=== PATIENT | female | born 1930 ===

== ENCOUNTER 2020-07-03 11:29 | Inpatient (IN) | payer OTHER ==
[~2020-07-03] VITALS: Ht 157.5 cm; Wt 62.6 kg
--- NOTE | 2020-07-03 11:49 | NUR ---
SE RECIBE PTE ALERTA ACOMPNADA POR FAMILIAR EL CUAL REFIERE QUE LA PTE TIENE HEMORROIDES Y LYN TENIDO SANGRADO RECTAL DESDE JENNIFER.
[2020-07-03] MEDS ORDERED: AMLODIPINE-OLM1 EAC3 (11:51)
[2020-07-03] MEDS ORDERED: LIPITOR20 MG (11:51)
[2020-07-03] MEDS ORDERED: ANASTROZOLE1 MG (11:52)
--- NOTE | 2020-07-03 13:06 | NUR ---
PTE FEMENINA ALERTA Y ORIENTADA EN L[place]AYESH ESFERAS ES EVALUADA POR . ORIENTA PTE SOBRE ORDENES DE [place] REFIERE COMPRENDER. CANALIZA VENA Y COLECTA MUESTRAS DE LABORATORIO, BAJO MEDIDAS ASEPTICAS. ADMINSITRA MEDICAMENTOS, BAJO MEDIDAS ASEPTICAS. SE ENTREGA CONTRASTE ORAL Y SE ORIENTA SOBRE INGESTA REFIERE ENTENDER. SE ENTREGA ENVASE PARA COLECCION DE MUESTRA U/C. SE NOTIFICA A RADIOLOGIA PARA CT.
--- NOTE | 2020-07-03 15:36 | NUR ---
SE RECIBE PTE ALERTA Y ORIENTADA X3 ACOMPANADA DE FAMILIAR. PTE CON H/L COLOCADO Y 0.9NSS 60ML/HR. PTE EN ESPERA DE ESTUDIO DE CT PO PENDIENTE A REALIZAR A LAS 4:45PM. PTE SE CONTINUA MONITORIANDO POR CAMBIOS.
--- NOTE | 2020-07-03 20:36 | NUR ---
SE COLOCA ENEMA A PTE EN HABITACION DE ISOLATION, PTE EVACUA CON MULTIPLES COAGULOS DE SRINATH, SE NOTIFICA A DR. CONNER.
--- NOTE | 2020-07-04 00:31 | NUR ---
SE RECIBE PTE DEL TURNO ANTERIOR, ALERTA, EN COMPANIA DE FAMILIAR, UBICADA EN CAMA NIVEL MAS BAJO, GRIMES DE IDENTIFICACION Y BARANDAS ELEVADAS POR PRECAUCION. SE OBSERVA CON BUEN PATRON RESPIRATORIO Y PIEL TIBIA AL TACTO. IV PATENTE Y LIANA DE EDEMA O ERITEMA CON 0.9% NSS @100ML/HR. PENDIENTE A REALIZAR PRUEBA DE LABORATORIO EN LA MANANA Y CONSULTA CON DR ANDREWS.
== END 2020-07-10 10:57 | disposition home or self-care (01) | DRG 379 ==
LOC: ER 11:29 → MEDI 07-04 07:05
PROVIDERS: ADMIT Internal Medicine; ATTEND Internal Medicine
PROC: 30233N1 Transfusion of Nonautologous Red Blood Cells into Peripheral Vein, Percutaneous Approach (ICD-10-PCS; principal; 2020-07-04)
PROC: BW2110Z Computerized Tomography (CT Scan) of Abdomen and Pelvis using Low Osmolar Contrast, Unenhanced and Enhanced (ICD-10-PCS; 2020-07-04)
PROC: CW1NYZZ Planar Nuclear Medicine Imaging of Whole Body using Other Radionuclide (ICD-10-PCS; 2020-07-05)
PROC: 0DJD8ZZ Inspection of Lower Intestinal Tract, Via Natural or Artificial Opening Endoscopic (ICD-10-PCS; 2020-07-09)
DX: K57.31 Diverticulosis of large intestine without perforation or abscess with bleeding (principal); D64.89 Other specified anemias; E83.52 Hypercalcemia; K59.09 Other constipation; K64.4 Residual hemorrhoidal skin tags; Z20.822 Contact with and (suspected) exposure to COVID-19; I10 Essential (primary) hypertension; Z85.3 Personal history of malignant neoplasm of breast